=== PATIENT | male | born 1930 | race Caucasian/White ===

== ENCOUNTER 2016-10-21 15:10 | Inpatient (IN) | payer OTHER ==
[~2016-10-21] VITALS: Ht 185.4 cm; Wt 124.3 kg
[~2016-10-21 15:10] MED LIST: ALBUTEROL SULF0.5 ML INH; ALLOPURINOL100 M1 PO; AMIODARONE HCL200 M1 PO; CEPHALEXIN500 M1 PO; COLACE100 M1 PO; CORDARONE 200M200 MG PO; DOK100 M1 PO; DULOXETINE HCL20 MG PO; FUROSEMIDE40 M1 PO; KLOR-CON M1010 ME1 PO; METOLAZONE2.5 M1 PO; METOLAZONE2.5 MG PO; METOPROLOL TART25 M1 PO; MULTIPLE VITAM1 EAC2 PO; OMEPRAZOLE20 M2 PO; PREDNISONE5 MG PO; SENOKOT NATURA8.6 MG PO
--- NOTE | 2016-10-21 15:19 | NUR ---
PT ARRIVES VIA EMS, REPORTS ABD PAIN SINCE 1000, PT ABLE TO EAT AND DRINK WELL BEFORE, ARRIVES TO ED PALE, DIAPHORETIC, BELCHING NOTABLE ABD HERNIA TO LUQ(MORE MIDLINE) PER EMS NO BOWEL SOUNDS
--- NOTE | 2016-10-21 15:22 | NUR ---
DR. ARZOLA ASKED TO SEE PT.
--- NOTE | 2016-10-21 15:39 | NUR ---
MD AT BEDSIDE, PT STEVEN JAMA, APPEARS UNCOMF REMAINS DIAPHORETIC, LABS DRAWN AND SENT.
[2016-10-21 15:47] LABS: ABSOLUTE BASOPHIL COUNT 0.1 /CUMM (0.0-0.2); ABSOLUTE EOSINOPHIL COUNT 0.2 /CUMM (0.0-0.7); ABSOLUTE GRANULOCYTE CT 8.8 /CUMM (1.4-6.5); ABSOLUTE MONOCYTE COUNT 0.6 /CUMM (0.10-0.60); BASOPHIL % 0.5 % (0.0-2.0); EOSINOPHIL % 1.3 % (0-5); GRANULOCYTE % 69.6 % (42.2-75.2); HEMATOCRIT 40.9 % (42-52); MEAN CORPUSCULAR HGB 29.8 PG (27.0-31.0); MEAN CORPUSCULAR HGB CONC 32.9 G/DL (33.0-37.0); MEAN CORPUSCULAR VOLUME 90.5 FL (80.0-94.0); MEAN PLATELET VOLUME 9.1 FL (7.4-10.4); PLATELET COUNT 173 /CUMM (130-400); RED BLOOD CELL CT 4.51 /CUMM (4.70-6.10); WHITE BLOOD CELL COUNT 12.7 /CUMM (4.8-10.8)
--- NOTE | 2016-10-21 15:47 | ED GI/GU/ABDOMINAL COMPLAINT ---
History of Present Illness General Chief Complaint: Abdominal Pain/Flank Pain Stated Complaint: BIBA, ABD PAIN Source: patient Exam Limitations: no limitations Vital Signs & Intake/Output Vital Signs & Intake/Output Vital Signs Date Time Temp Pulse Resp B/P B/P Pulse O2 O2 Flow FiO2 Mean Ox Delivery Rate 10/21 1759 96.0 56 16 131/61 93 Room Air 10/21 1520 96.1 72 72 136/64 94 Room Air Allergies Coded Allergies: NO KNOWN ALLERGIES (03/02/14) Reconcile Medications Allopurinol 100 MG TABLET 1 TAB PO BID GOUT (Reported) Amiodarone HCl 200 MG TABLET 0.5 TAB PO DAILY HEART (Reported) Docusate Sodium (Colace) 100 MG CAPSULE 1 CAP PO QAM STOOL SOFTENER (Reported ) Duloxetine HCl 20 MG CAPSULE.DR 1 CAP PO QAM NERVE PAIN (Reported) Furosemide 40 MG TABLET 1 TAB PO BID DIURETIC (Reported) Metolazone 2.5 MG TABLET 1 TAB PO Monday DIURETIC (Reported) Metoprolol Tartrate 25 MG TABLET 1 TAB PO BID BP (Reported) Multivitamin (Multiple Vitamins) 1 EACH TABLET 1 TAB PO DAILY SUPPLEMENT ( Reported) Omeprazole 20 MG CAPSULE.DR 1 CAP PO QAM GI (Reported) Polyethylene Glycol 3350 (Miralax) 17 GRAM POWD.PACK 1 PAC PO DAILY GI ( Reported) dissolve in water Potassium Chloride (Klor-Con M10) 10 MEQ TAB.ER.PRT 1 TAB PO QAM SUPPLEMENT ( Reported) Prednisone 5 MG TABLET 1 TAB PO DAILY GOUT (Reported) Triage Note: PT ARRIVES VIA EMS, REPORTS ABD PAIN SINCE 1000, PT ABLE TO EAT AND DRINK WELL BEFORE, ARRIVES TO ED PALE, DIAPHORETIC, BELCHING NOTABLE ABD HERNIA TO LUQ(MORE MIDLINE) PER EMS NO BOWEL SOUNDS Triage Nurses Notes Reviewed? yes HPI: Patient presents for evaluation of severe abdominal pain that began gradually about 10:00 this morning while at rest at home. Patient is describing a central abdominal pain "like I have to go to the bathroom". He has had nausea but no vomiting diarrhea or dysuria. He likewise denies chest pain or dyspnea. He has had similar abdominal pain episodes secondary to small bowel obstruction. nothing seems to make him feel better. Past History Travel History Traveled to [place] past 21 day No Medical History Any Pertinent Medical History? see below for history Neurological: NONE EENT: NONE Cardiovascular: aortic aneurysm, AFIB Respiratory: LUNG BIOPSY Gastrointestinal: peptic ulcer disease, ILEUS H. 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 Other Medical Hx: AFIB, aortic regurgitation, pulmonary embolism, IVC filter, diastolic heart failure History of MRSA: No History of VRE: No History of CDIFF: No Pneumonia Vaccine: 02/03/14 Surgical History Surgical History: appendectomy, cholecystectomy, hernia repair-incisional, hip replacement, knee replacement, multiple surgeries orthopedic and abdominal surgeries Psychosocial History Who do you live with Patient/Self Services at Home Home Health Aide What is your primary language Albanian Tobacco Use: Never used Family History Family History, If Any: MOTHER FH: stomach cancer FATHER FH: [place] (myocardial infarction) Hx Contributory? No Review of Systems Review of Systems Constitutional: Reports: no symptoms. EENTM: Reports: no symptoms. Respiratory: Reports: no symptoms. Cardiovascular: Reports: no symptoms. GI: Reports: see HPI. Genitourinary: Reports: no symptoms. Musculoskeletal: Reports: no symptoms. Skin: Reports: no symptoms. Neurological/Psychological: Reports: no symptoms. Hematologic/Endocrine: Reports: no symptoms. Immunologic/Allergic: Reports: no symptoms. All Other Systems: Reviewed and Negative Physical Exam Physical Exam Gastrointestinal: see below Comments: Gen.: Well-nourished, well-developed, no acute respiratory distress. Mild to moderate distress secondary to abdominal pain and nausea Head: Normocephalic, atraumatic. Eyes: Normal inspection bilaterally Ears: Normal inspection bilaterally Nose: Normal inspection Throat/mouth : Tacky mucosa Neck: Supple, full range of motion, no goiter Heart: Regular rate and rhythm, no murmurs rubs or gallops Lungs: Clear to auscultation bilaterally with normal air entry Chest: Nontender Back: Normal range of motion Abdomen: Soft, diffuse mild tenderness, diffusely distended, decreased bowel sounds, 3 ventral hernias Extremities: Normal range of motion grossly, equal radial pulses, no cyanosis Neurologic: Cranial nerves grossly intact, speech is clear Skin: warm and dry Psychiatric: Calm, cooperative, no apparent delusions or hallucinations Core Measures ACS in differential dx? No Severe Sepsis Present: No Septic Shock Present: No Progress Differential Diagnosis: sbo,ilues Plan of Care: Orders Procedure Date/time Status Nothing by Mouth 10/22 B Active PHOSPHORUS 10/22 06 Active MAGNESIUM 10/22 06 Active CBC WITHOUT DIFFERENTIAL 10/22 06 Active BASIC ELECTROLYTES PLUS BUN&CR 10/22 06 Active XRY-PORTABLE CHEST XRAY 10/22 1935 Active Admit to inpatient 10/21 1924 Active Patient Data 10/21 1909 Active NGT 10/21 1909 Active TROPONIN LEVEL 10/21 1525 Complete LIPASE 10/21 1525 Complete LACTIC ACID 10/21 1525 Complete COMPREHENSIVE METABOLIC PANEL 10/21 152 Complete CBC WITHOUT DIFFERENTIAL 10/21 1525 Complete AMYLASE 10/21 1525 Complete EKG 10/21 1511 Active Current Medications Sig/Keegan Start time Last Medication Dose Stop Time Status Admin Pantoprazole Sodium 40 MG DAILY 10/22 1000 UNVr (Protonix) Metoprolol Tartrate 5 MG Q6 10/22 0600 UNVr (Lopressor) Heparin Sodium 5,000 UNIT Q8 10/21 2200 UNVr (Porcine) Ondansetron HCl 4 MG Q6P PRN 10/21 2200 UNVr (Zofran) Morphine Sulfate 2 MG Q4P PRN 10/21 1900 UNVr (Morphine) Morphine Sulfate 4 MG Q4P PRN 10/21 1900 UNVr (Morphine) Potassium Chloride 20 MEQ Q13H 10/21 190 UNVr (KCl 20MEQ in D5W NS 1000ML) Dextrose/Sodium 1,000 ML Chloride (D5-Normal Saline) Laboratory Tests 10/21/16 1615: Lactic Acid Cancelled 10/21/16 1530: Anion Gap 14, Estimated GFR 27 L, BUN/Creatinine Ratio 37.8 H, Glucose 129 H, Lactic Acid 2.0, Calcium 9.3, Total Bilirubin 0.9, AST 22, ALT 36, Alkaline Phosphatase 89, Troponin I 0.04, Total Protein 7.0, Albumin 3.9, Globulin 3.1, Albumin/Globulin Ratio 1.3, Amylase 177 H, Lipase 332 H, CBC w Diff NO MAN DIFF REQ, RBC 4.51 L, MCV 90.5, MCH 29.8, RDW 15.0 H, MPV 9.1, Gran % 69.6, Lymphocytes % 24.0, Monocytes % 4.6, Eosinophils % 1.3, Basophils % 0.5, Absolute Granulocytes 8.8 H, Absolute Lymphocytes 3.0, Absolute Monocytes 0.6, Absolute Eosinophils 0.2, Absolute Basophils 0.1, PUBS MCHC 32.9 L Diagnostic Imaging: Discussed w/RAD: Radiology Read. Radiology Impression: PATIENT: REGI LOBATO PRESENT AGE: 86 PATIENT ACCOUNT NO: [id number] : [birth year] LOCATION: [facility] ORDERING PHYSICIAN: SAMANTHA VITALE MD SERVICE DATE: 10/21/16 EXAM TYPE: RAD - [id number] VIEWS EXAMINATION: XR ABDOMEN MULTIPLE VIEWS CLINICAL INDICATION: Abdominal distention and pain. COMPARISON: Multiple prior x-rays most recent prior dated 03/11/2016 TECHNIQUE: Supine and upright abdomen. FINDINGS: Multiple dilated loops of small bowel noted in the midabdomen. Distended loops measure approximately 6.2 cm in maximal dilatation. Abnormally dilated small bowel loops were also seen on the previous examination. Gas noted underneath the left hemidiaphragm likely representing air in the stomach. No evidence of air underneath the right hemidiaphragm. Surgical clips noted in the upper abdomen and pelvis. Status post left hip arthroplasty. IMPRESSION: Abnormal dilatation of the small bowel suspicious for small bowel obstruction in the appropriate clinical setting. Further assessment with CT scan recommended to assess the possible zone of transition. Finding discussed with Dr. Vitale at 4:40 PM on 10/21/2016. DICTATED BY: FRANCO WEST MD DATE/TIME DICTATED:10/21/161606 CAMPUS RECEPTIONIST:NIKKI DATE/TIME TRANSCRIBED:10/21/161606 CONFIDENTIAL, DO NOT COPY WITHOUT APPROPRIATE AUTHORIZATION. <Electronically signed in Other Vendor System> SIGNED BY: FRANCO WEST MD 10/21/16 2602 Initial ED EKG: none Comments: 10/21/2016 5:57:19 PM NG tube placed by me with typical yellow-green stomach aspirate obtained. Patient's case has been discussed with Dr. Peterson and I have just notify the surgical PA. The patient according to the family would not consider surgical intervention so the radiologist recommended CAT scan has been deferred and a simple chest x-ray will be obtained to confirm NG tube placement. Surgical PA SANKET is in agreement. Departure Departure Disposition: STILL A PATIENT Condition: Stable Clinical Impression Primary Impression: Small bowel obstruction Secondary Impressions: APRIL (acute kidney injury), Anemia, Ventral hernia Referrals: SHRUTHI MIRZA,DAVID Mario (PCP/Family) Departure Forms: Customer Survey General Discharge Information Admission Note Spoke With: SILVESTRE MIRZA,MADHAV Harris Documentation of Exam: Documentation of any treatments & extenuating circumstances including Concerns Regarding Discharge (functional status, medication knowledge or non-compliance, living conditions, etc.) that warrant an admission rather than observation: Patient has a small bowel obstruction with severe nausea and retching. He is unable to tolerate PO intake. This places him at high risk of dehydration. In addition his bowel obstruction places him at risk of worsening abdominal pain perforation peritonitis and overwhelming infection. An NG tube has been placed to decompress the gastrointestinal tract. The patient is requiring IV antiemetics and pain medication for symptom control. He cannot be treated safely as an outpatient under the circumstances that would likely return in worse clinical condition if attempted. I feel he now requires close clinical monitoring, treatment with IV antiemetics and narcotic pain relievers for symptom control. He should also be administered IV fluids for dehydration. Serial abdominal examination should be performed and additional imaging obtained and surgical exploration should be considered if there is any deterioration of patient's clinical condition. Given his age and medical comorbidities I feel he 'll require a multiple day hospitalization. Procedures Additional Procedures Additional Procedures: nasogastric tube Progress: Nasogastric tube placed into the left nostril with an 18 [place] sump catheter. Patient tolerated procedure well. Yellow-green gastric contents obtained. Critical Care Note Critical Care Note Critical Care Time: 30-74 min
--- NOTE | 2016-10-21 15:56 | NUR ---
REDRAW NEEDED OF MIREYA LA, CANDY CHAPPELL IN CHEMISTRY, RAHEL Rivera
[2016-10-21] MEDS ORDERED: MIRALAX17 G1 PO (16:09)
[2016-10-21] MEDS ORDERED: PREDNISONE5 M1 PO (16:12)
--- NOTE | 2016-10-21 16:19 | NUR ---
GOMES TOP REDRAWN BLUE TOP OBTAINED ALSO
--- NOTE | 2016-10-21 16:45 | RADIOLOGY REPORT ---
EXAMINATION: XR ABDOMEN MULTIPLE VIEWS CLINICAL INDICATION: Abdominal distention and pain. COMPARISON: Multiple prior x-rays most recent prior dated 03/11/2016 TECHNIQUE: Supine and upright abdomen. FINDINGS: Multiple dilated loops of small bowel noted in the midabdomen. Distended loops measure approximately 6.2 cm in maximal dilatation. Abnormally dilated small bowel loops were also seen on the previous examination. Gas noted underneath the left hemidiaphragm likely representing air in the stomach. No evidence of air underneath the right hemidiaphragm. Surgical clips noted in the upper abdomen and pelvis. Status post left hip arthroplasty. IMPRESSION: Abnormal dilatation of the small bowel suspicious for small bowel obstruction in the appropriate clinical setting. Further assessment with CT scan recommended to assess the possible zone of transition. Finding discussed with Dr. Vitale at 4:40 PM on 10/21/2016.
--- NOTE | 2016-10-21 16:51 | NUR ---
CRITICAL TEST RESULTS [id number] REGI LOBATO 86 M TESTS AND RESULTS: LACTIC 2.0 Results received and read back by: HOUSTON HUSSEIN Results received date and time: 10/21/16 1651 The following provider was notified of the results, and read the results back: DR ARZOLA Notified date and time: 10/21/16 at 1653
--- NOTE | 2016-10-21 17:48 | NUR ---
NGT PLACED BY
--- NOTE | 2016-10-21 17:48 | NUR ---
NG TUBE PALCED BY DOCTOR ARZOLA. PT TOLERATED WELL, CLEAR YELLOW FLUID DRAINING AFTER DR ARZOLA PLACED ON CONTINUOUS LOW WALL SUCTION
--- NOTE | 2016-10-21 18:32 | NUR ---
PT ACTIVELY VOMITING , MD AWARE PT APPEARS UNCOMF, FAMILY AT BEDSIDE NGT DRAINING YELLOWISH LIQUID.
--- NOTE | 2016-10-21 19:08 | History & Physical Pre-Op ---
General Information and HPI History of Present Illness: Patient known to me from prior admissions for bowel obstruction. He has multiple incisional hernias containing small bowel. Given his age, they have been observed, as repair would require major abdomonal wall reconstruction. He presents with abdominal pain and increase distension associated with nausea, vomiting and lack of bowel function. History is gleaned from his daughter at the bedside. He is sleepy and arousable but unable to give much of a history from pain medications and antiemetics. Allergies/Medications Allergies: Coded Allergies: NO KNOWN ALLERGIES (03/02/14) Home Med list Allopurinol 100 MG TABLET 1 TAB PO BID GOUT (Reported) Amiodarone HCl 200 MG TABLET 0.5 TAB PO DAILY HEART (Reported) Docusate Sodium (Colace) 100 MG CAPSULE 1 CAP PO QAM STOOL SOFTENER (Reported ) Duloxetine HCl 20 MG CAPSULE.DR 1 CAP PO QAM NERVE PAIN (Reported) Furosemide 40 MG TABLET 1 TAB PO BID DIURETIC (Reported) Metolazone 2.5 MG TABLET 1 TAB PO Monday DIURETIC (Reported) Metoprolol Tartrate 25 MG TABLET 1 TAB PO BID BP (Reported) Multivitamin (Multiple Vitamins) 1 EACH TABLET 1 TAB PO DAILY SUPPLEMENT ( Reported) Omeprazole 20 MG CAPSULE.DR 1 CAP PO QAM GI (Reported) Polyethylene Glycol 3350 (Miralax) 17 GRAM POWD.PACK 1 PAC PO DAILY GI ( Reported) dissolve in water Potassium Chloride (Klor-Con M10) 10 MEQ TAB.ER.PRT 1 TAB PO QAM SUPPLEMENT ( Reported) Prednisone 5 MG TABLET 1 TAB PO DAILY GOUT (Reported) Past History Medical History Neurological: NONE EENT: NONE Cardiovascular: aortic aneurysm, AFIB Respiratory: LUNG BIOPSY Gastrointestinal: peptic ulcer disease, ILEUS H. 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 self Services at Home Home Health Aide Primary Language: Spanish Functional Ability ADLs Independent: dressing, eating, toileting, bathing. Ambulation: independent Review of Systems Review of Systems: unobtainable. Exam & Diagnostic Data Last 24 Hrs of Vital Signs/I&O Vital Signs Date Time Temp Pulse Resp B/P B/P Pulse O2 O2 Flow FiO2 Mean Ox Delivery Rate 10/21 1759 96.0 56 16 131/61 93 Room Air 10/21 1520 96.1 72 72 136/64 94 Room Air Intake & Output 10/21 1600 10/21 0800 10/21 0000 Intake Total Output Total Balance Patient 185 lb Weight Physical Exam: Gen: looks age, nad. sleepy but arousable. Heent: anicteric, mmm, eomi abdomen: soft, nt. distended. irreducible multiple bowel containing hernias of abdominal wall. Last 24 Hrs of Labs/Martin: Laboratory Tests 10/21/16 1615: Lactic Acid Pending 10/21/16 1530: Anion Gap 14, Estimated GFR 27 L, BUN/Creatinine Ratio 37.8 H, Glucose 129 H, Lactic Acid 2.0, Calcium 9.3, Total Bilirubin 0.9, AST 22, ALT 36, Alkaline Phosphatase 89, Troponin I 0.04, Total Protein 7.0, Albumin 3.9, Globulin 3.1, Albumin/Globulin Ratio 1.3, Amylase 177 H, Lipase 332 H, CBC w Diff NO MAN DIFF REQ, RBC 4.51 L, MCV 90.5, MCH 29.8, RDW 15.0 H, MPV 9.1, Gran % 69.6, Lymphocytes % 24.0, Monocytes % 4.6, Eosinophils % 1.3, Basophils % 0.5, Absolute Granulocytes 8.8 H, Absolute Lymphocytes 3.0, Absolute Monocytes 0.6, Absolute Eosinophils 0.2, Absolute Basophils 0.1, PUBS MCHC 32.9 L Diagnostic Data CXR Results abdominal xray shows multiple dilated loops of small bowel. Assessment/Plan Assessment/Plan: Intestinal 0bstruction. No evidence for bowel strangulation. Plan for medical management with NGT and hydration, bowel rest, serial abdominal examinations. Dehydration with baseline chronic kidney disease. As Ranked By This Provider Problem List: 1. Small bowel obstruction
--- NOTE | 2016-10-21 19:15 | NUR ---
PER FAMILY SEEN BY DR. RIVERS WHO REPORTS WILL TRET PT CONSERVATIVELY AND REST STOMACH, NOT A SURGICAL CANDIDATE AT THIS TIME.
--- NOTE | 2016-10-21 19:58 | NUR ---
PT CONTINUES TO VOMIT.
--- NOTE | 2016-10-21 20:17 | NUR ---
PT TO ROOM 185 BED 1
--- NOTE | 2016-10-21 20:37 | NUR ---
PER YUNIER CHARGE SPOKE WITH SURGERY PT TO GO TO TELE D/T NEEDING LOPRESSOR IN AM PT IS ON IT AT HOME D/T NGT PT WOULD NEED IT IV ,AND NEEDS TELE FOR THAT. ALTHOUGH PTS HR IS IN 60'S. AND NORMOTWNSIVE. REPORT TO JOSE
--- NOTE | 2016-10-21 20:42 | RADIOLOGY REPORT ---
EXAMINATION: XR PORTABLE CHEST CLINICAL INFORMATION: NG tube placement. COMPARISON: Abdominal x-ray from earlier the same day. TECHNIQUE: Portable frontal view of the chest was obtained. FINDINGS: Despite history, an NG tube is not convincingly visualized either in the expected location of the esophagus or projecting over the stomach. The thoracic aorta remains unfolded and prominent. The heart size is normal. The lungs are unchanged and grossly clear. Air-filled loops of bowel are seen in the upper abdomen. Clips in the right upper quadrant of the abdomen. IMPRESSION: An NG tube is not convincingly visualized on this image.
[2016-10-21 21:26] VITALS: BP 120/58
--- NOTE | 2016-10-21 23:26 | Admission Core Measures ---
Admission Lab Results I reviewed the following labs: Laboratory Tests 10/21 10/21 1615 1530 Chemistry Sodium (137 - 145 mmol/L) 139 Potassium (3.5 - 5.1 mmol/L) 3.8 Chloride (98 - 107 mmol/L) 98 Carbon Dioxide (22 - 30 mmol/L) 28 Anion Gap (5 - 16) 14 BUN (9 - 20 mg/dL) 87 H Creatinine (0.7 - 1.2 mg/dL) 2.3 H Estimated GFR (>60 ml/min) 27 L BUN/Creatinine Ratio (7 - 25 %) 37.8 H Glucose (65 - 99 mg/dL) 129 H Lactic Acid (0.7 - 2.1 mmol/L) Cancelled 2.0 Calcium (8.4 - 10.2 mg/dL) 9.3 Total Bilirubin (0.2 - 1.3 mg/dL) 0.9 AST (17 - 59 U/L) 22 ALT (21 - 72 U/L) 36 Alkaline Phosphatase (< 127 U/L) 89 Troponin I (<0.11 ng/ml) 0.04 Total Protein (6.3 - 8.2 g/dL) 7.0 Albumin (3.5 - 5.0 g/dL) 3.9 Globulin (1.9 - 4.2 gm/dL) 3.1 Albumin/Globulin Ratio (1.1 - 2.2 %) 1.3 Amylase (30 - 110 U/L) 177 H Lipase (23 - 300 U/L) 332 H Hematology CBC w Diff NO MAN DIFF REQ WBC (4.8 - 10.8 /CUMM) 12.7 H RBC (4.70 - 6.10 /CUMM) 4.51 L Hgb (14.0 - 18.0 G/DL) 13.4 L Hct (42 - 52 %) 40.9 L MCV (80.0 - 94.0 FL) 90.5 MCH (27.0 - 31.0 PG) 29.8 RDW (11.5 - 14.5 %) 15.0 H Plt Count (130 - 400 /CUMM) 173 MPV (7.4 - 10.4 FL) 9.1 Gran % (42.2 - 75.2 %) 69.6 Lymphocytes % (20.5 - 51.1 %) 24.0 Monocytes % (1.7 - 9.3 %) 4.6 Eosinophils % (0 - 5 %) 1.3 Basophils % (0.0 - 2.0 %) 0.5 Absolute Granulocytes (1.4 - 6.5 /CUMM) 8.8 H Absolute Lymphocytes (1.2 - 3.4 /CUMM) 3.0 Absolute Monocytes (0.10 - 0.60 /CUMM) 0.6 Absolute Eosinophils (0.0 - 0.7 /CUMM) 0.2 Absolute Basophils (0.0 - 0.2 /CUMM) 0.1 PUBS MCHC (33.0 - 37.0 G/DL) 32.9 L Admission Meds I reviewed the following Meds: Current Medications Sig/Keegan Start time Last Medication Dose Stop Time Status Admin Heparin Sodium 5,000 UNIT Q8 10/21 2200 AC 10/21 (Porcine) 220 Metoprolol Tartrate 5 MG Q6 10/22 0600 AC (Lopressor) Morphine Sulfate 2 MG Q4P PRN 10/21 1900 AC (Morphine) Morphine Sulfate 4 MG Q4P PRN 10/21 1900 AC (Morphine) Ondansetron HCl 4 MG Q6P PRN 10/21 2200 AC (Zofran) Pantoprazole Sodium 40 MG DAILY 10/22 1000 AC (Protonix) Potassium Chloride 20 MEQ Q13H 10/21 1900 AC 10/21 (KCl 20MEQ in D5W NS 2041 1000ML) Dextrose/Sodium 1,000 ML Chloride (D5-Normal Saline) Acute Coronary Syndrome Inclusion Criteria ACS Diagnosis No Inpatient Core Measures LDL Reminder: If No, please order W/I first 24hr of stay Congestive Heart Failure Inclusion Criteria CHF Diagnosis No Cerebrovascular accident Inclusion Criteria CVA/TIA Diagnosis No Inpatient Core Measures Bedside Swallow Eval Reminder: If BSE failed, place ST order Antithrombotic Reminder: Order Antithrombotic Medication by end of day 2 Antithrombotic Reminder: Document Reason Antithrombotic Not ordered by end of day 2 AFIB/Flutter Reminder: If Present, add to problem list AFIB/Flutter Reminder: Order Anticoag Medication for pts with AFIB/Flutter Atherosclerosis Reminder: If Present, add to problem list LDL Reminder: If No, please order W/I first 24hr of stay PT Order Reminder: If No, please order Venous thromboembolism Inpatient Core Measures VTE Risk Factors: Acute medical illness, Age > 40, Previous VTE No Mech VTE prophylaxis d/t No contraindications No VTE Pharm Prophylaxis d/t No contraindications Inclusion Criteria - Per Current guidelines, there needs to be overlap - treatment for the first 5 days of Warfarin therapy. - Parenteral Anticoagulation (IV or SC) needs to be - given along with Warfarin therapy. VTE Diagnosis No VTE Type NONE VTE Confirmed by (Test) NONE Problem List As ranked by this Provider includes Assessment & Plan 1. SBO (small bowel obstruction) HOME MEDS Home Med List Allopurinol 100 MG TABLET 1 TAB PO BID GOUT (Reported) Amiodarone HCl 200 MG TABLET 0.5 TAB PO DAILY HEART (Reported) Docusate Sodium (Colace) 100 MG CAPSULE 1 CAP PO QAM STOOL SOFTENER (Reported ) Duloxetine HCl 20 MG CAPSULE.DR 1 CAP PO QAM NERVE PAIN (Reported) Furosemide 40 MG TABLET 1 TAB PO BID DIURETIC (Reported) Metolazone 2.5 MG TABLET 1 TAB PO Monday DIURETIC (Reported) Metoprolol Tartrate 25 MG TABLET 1 TAB PO BID BP (Reported) Multivitamin (Multiple Vitamins) 1 EACH TABLET 1 TAB PO DAILY SUPPLEMENT ( Reported) Omeprazole 20 MG CAPSULE.DR 1 CAP PO QAM GI (Reported) Polyethylene Glycol 3350 (Miralax) 17 GRAM POWD.PACK 1 PAC PO DAILY GI ( Reported) Potassium Chloride (Klor-Con M10) 10 MEQ TAB.ER.PRT 1 TAB PO QAM SUPPLEMENT ( Reported) Prednisone 5 MG TABLET 1 TAB PO DAILY GOUT (Reported)
[2016-10-21 23:41] VITALS: BP 128/60
[2016-10-22 08:17] VITALS: BP 112/58
[2016-10-22 08:22] LABS: ABSOLUTE BASOPHIL COUNT 0 /CUMM (0.0-0.2); ABSOLUTE EOSINOPHIL COUNT 0.1 /CUMM (0.0-0.7); ABSOLUTE GRANULOCYTE CT 7.7 /CUMM (1.4-6.5); ABSOLUTE LYMPH COUNT 1.6 /CUMM (1.2-3.4); ABSOLUTE MONOCYTE COUNT 0.5 /CUMM (0.10-0.60); BASOPHIL % 0.4 % (0.0-2.0); GRANULOCYTE % 77.3 % (42.2-75.2); HEMATOCRIT 39.7 % (42-52); MEAN CORPUSCULAR HGB 29.8 PG (27.0-31.0); MEAN CORPUSCULAR VOLUME 90.3 FL (80.0-94.0); MEAN PLATELET VOLUME 9.7 FL (7.4-10.4); PLATELET COUNT 156 /CUMM (130-400); RBC DISTRIBUTION WIDTH 15.3 % (11.5-14.5); WHITE BLOOD CELL COUNT 9.9 /CUMM (4.8-10.8)
--- NOTE | 2016-10-22 08:37 | PN- General Surgery ---
See Addendum Subjective Subjective: Awake, alert No complaints this morning, feels much better No pain, no further nausea Has actually passed gas, No bm - last bm 2 days ago Objective Vital Signs and I&Os Vital Signs Date Time Temp Pulse Resp B/P B/P Pulse O2 O2 Flow FiO2 Mean Ox Delivery Rate 10/23 0717 98.3 65 18 112/58 96 Room Air 10/22 0600 70 130/80 10/21 2341 97.2 66 20 128/60 91 Room Air 10/21 2126 97.6 80 18 120/58 94 Room Air 10/21 1920 97.0 60 16 130/70 96 Room Air 10/21 1759 96.0 56 16 131/61 93 Room Air 10/21 1520 96.1 72 72 136/64 94 Room Air Intake & Output 10/22 1600 10/22 0800 10/22 0000 10/21 1600 10/21 0800 10/21 0000 Intake Total 1000 Output Total 1300 200 Balance -300 -200 Intake, IV 1000 Output, 900 200 Gastric Drainage Output, Urine 400 Patient 274 lb 185 lb Weight Physical Exam: vss, afebrile Urine output 400cc overnight NGT: 900cc overnight, dark, thin General: alert and oriented times three Chest: clear anteriorly bilaterally, RRR Abd: soft, palpable hernias - (at baseline per patient, nontender, soft), good bs Ext: warm, no edema Assessment/Plan Assessment/Plan 86 yo male with multiple hernias and recurrent sbo, admitted with sbo and dehydration - symptoms improving, +flatus, stable urine output follow up multiview Will assess ability to clamp NGT for medications later - still with high output overnight Continue IV meds - including metoprolol Increase potassium in IVF for repletion Continue IVF at 125cc/hr for now ice chips Core Measures/Miscellaneous Venous Thromboembolism VTE Risk Factors: Obesity VTE Contraindications: No Contraindications VTE Diagnosis: No VTE Type: NONE VTE Confirmed by (Test): NONE [employer] Is Beta [employer] a Home Med? Yes If Yes, Was This Ordered Today? Yes Antibiotics Is Patient on Antibiotics? No
--- NOTE | 2016-10-22 15:58 | RADIOLOGY REPORT ---
EXAMINATION: XR ABDOMEN MULTIPLE VIEWS CLINICAL INDICATION: Follow-up small bowel obstruction COMPARISON: 10/21/2016 TECHNIQUE: Frontal supine and erect views the abdomen obtained. FINDINGS: Stool and air seen within the colon to the rectum. Scattered air-filled loops of small bowel are seen but these have decreased somewhat from yesterday's study. Stomach is decompressed with nasogastric tube. Multiple surgical khalif are seen in the left upper quadrant and to a lesser extent right upper quadrant. Surgical clips seen along the pelvic sidewalls. IVC filter is in place. Extensive degenerative changes in the spine. Left hip prosthesis partially imaged. IMPRESSION: Stool and air seen throughout the colon to the rectum. No obvious obstruction. Small bowel gas is decreased from yesterday's study.
[2016-10-22 16:12] VITALS: BP 128/60
[2016-10-22 23:48] VITALS: BP 128/68
--- NOTE | 2016-10-23 00:04 | NUR ---
ONLY 50ML OUTPUT FROM NGT FOR LAST 4 HOURS. SURGICAL PA MORRIS AWARE. PER MORRIS, SHE WILL CHANGE THE IV LOPRESSOR TO PO AND TO BE GIVEN THROUGH NGT AND CLAMP FOR ONE HOUR THEN CONTINUE LWS. BP 128/64. HR NSR 70S. NAD.
[2016-10-23 08:21] VITALS: BP 136/82
[2016-10-23 08:22] LABS: ABSOLUTE BASOPHIL COUNT 0 /CUMM (0.0-0.2); ABSOLUTE EOSINOPHIL COUNT 0.3 /CUMM (0.0-0.7); ABSOLUTE GRANULOCYTE CT 5.7 /CUMM (1.4-6.5); ABSOLUTE LYMPH COUNT 1.7 /CUMM (1.2-3.4); ABSOLUTE MONOCYTE COUNT 0.6 /CUMM (0.10-0.60); BASOPHIL % 0.4 % (0.0-2.0); EOSINOPHIL % 3.1 % (0-5); GRANULOCYTE % 68.3 % (42.2-75.2); HEMATOCRIT 37.9 % (42-52); MEAN CORPUSCULAR HGB 29.8 PG (27.0-31.0); MEAN CORPUSCULAR HGB CONC 32.5 G/DL (33.0-37.0); MEAN CORPUSCULAR VOLUME 91.7 FL (80.0-94.0); MEAN PLATELET VOLUME 9.9 FL (7.4-10.4); PLATELET COUNT 139 /CUMM (130-400); RBC DISTRIBUTION WIDTH 15.7 % (11.5-14.5); RED BLOOD CELL CT 4.13 /CUMM (4.70-6.10); WHITE BLOOD CELL COUNT 8.3 /CUMM (4.8-10.8)
--- NOTE | 2016-10-23 09:50 | PN- General Surgery ---
See Addendum Subjective Subjective: Pt has no major complaints this morning. He is feeling much better overall and started to pass some flatus this morning. He denies abdominal pain. No BM as of yet. Multi-view X-ray of the abdomen showed improvement yesterday afternoon. Per previous PA reports, NGT was clamped for several hours after the trip to radiology yesterday, but pt tolerated this well, without any complaints of nausea. Otherwise denies MCDONOUGH, dizziness, CP, SOB. Objective Vital Signs and I&Os Vital Signs Date Time Temp Pulse Resp B/P B/P Pulse O2 O2 Flow FiO2 Mean Ox Delivery Rate 10/23 820 98.2 80 18 136/82 92 Room Air 10/23 0519 99.4 10/23 0134 99.5 10/23 0134 78 132/64 10/23 0000 Room Air 10/22 2348 99.7 72 22 128/68 92 Room Air 10/22 1811 78 140/80 10/22 1810 76 140/80 10/22 1612 98.1 93 20 128/60 93 Room Air Intake & Output 10/23 1600 10/23 0800 10/23 0000 10/22 1600 10/22 0800 10/22 0000 Intake Total 1000 0263 833 7157 Output Total 773 415 5663 1300 200 Balance 400 1250 -300 -300 -200 Intake, IV 1000 4783 416 2863 Intake, Oral 0 0 50 Number 0 0 Bowel Movements Output, 150 50 750 900 200 Gastric Drainage Output, Urine 450 200 500 400 Patient 274 lb Weight Physical Exam: Gen: Patient is awake and alert. No acute distress. HEENT: Nasogastric tube remains in place with scant amount of bilious output. The canister was full, so I suggested changing it to ensure that the decreased output was not due to loss of negative pressure. Observation for about 15-20 minutes revealed only scant output. Cardiac: Regular, but with occasional irregularity. Pulmonary: Anterior lung alexander are clear. Abdomen: Soft and nondistended. Multiple abdominal wall defects, without significant tenderness or distention. Normoactive bowel sounds were heard. Extremities: There is some mild lower extremity edema bilaterally, but right greater than left. Results Last 48 Hours of Labs: Laboratory Tests 10/23 10/22 0606 0620 Chemistry Sodium (137 - 145 mmol/L) 148 H 142 Potassium (3.5 - 5.1 mmol/L) 4.2 3.9 Chloride (98 - 107 mmol/L) 108 H 101 Carbon Dioxide (22 - 30 mmol/L) 30 28 Anion Gap (5 - 16) 10 13 BUN (9 - 20 mg/dL) 71 H 88 H Creatinine (0.7 - 1.2 mg/dL) 2.0 H 2.2 H Estimated GFR (>60 ml/min) 32 L 28 L BUN/Creatinine Ratio (7 - 25 %) 35.5 H 40.0 H Phosphorus (2.5 - 4.5 mg/dL) 5.3 H Magnesium (1.6 - 2.3 mg/dL) 2.3 Hematology CBC w Diff NO MAN DIFF REQ NO MAN DIFF REQ WBC (4.8 - 10.8 /CUMM) 8.3 9.9 RBC (4.70 - 6.10 /CUMM) 4.13 L 4.40 L Hgb (14.0 - 18.0 G/DL) 12.3 L 13.1 L Hct (42 - 52 %) 37.9 L 39.7 L MCV (80.0 - 94.0 FL) 91.7 90.3 MCH (27.0 - 31.0 PG) 29.8 29.8 RDW (11.5 - 14.5 %) 15.7 H 15.3 H Plt Count (130 - 400 /CUMM) 139 156 MPV (7.4 - 10.4 FL) 9.9 9.7 Gran % (42.2 - 75.2 %) 68.3 77.3 H Lymphocytes % (20.5 - 51.1 %) 20.5 16.5 L Monocytes % (1.7 - 9.3 %) 7.7 4.8 Eosinophils % (0 - 5 %) 3.1 1.0 Basophils % (0.0 - 2.0 %) 0.4 0.4 Absolute Granulocytes (1.4 - 6.5 /CUMM) 5.7 7.7 H Absolute Lymphocytes (1.2 - 3.4 /CUMM) 1.7 1.6 Absolute Monocytes (0.10 - 0.60 /CUMM) 0.6 0.5 Absolute Eosinophils (0.0 - 0.7 /CUMM) 0.3 0.1 Absolute Basophils (0.0 - 0.2 /CUMM) 0 0 PUBS MCHC (33.0 - 37.0 G/DL) 32.5 L 33.0 10/21 10/21 1615 1530 Chemistry Sodium (137 - 145 mmol/L) 139 Potassium (3.5 - 5.1 mmol/L) 3.8 Chloride (98 - 107 mmol/L) 98 Carbon Dioxide (22 - 30 mmol/L) 28 Anion Gap (5 - 16) 14 BUN (9 - 20 mg/dL) 87 H Creatinine (0.7 - 1.2 mg/dL) 2.3 H Estimated GFR (>60 ml/min) 27 L BUN/Creatinine Ratio (7 - 25 %) 37.8 H Glucose (65 - 99 mg/dL) 129 H Lactic Acid (0.7 - 2.1 mmol/L) Cancelled 2.0 Calcium (8.4 - 10.2 mg/dL) 9.3 Total Bilirubin (0.2 - 1.3 mg/dL) 0.9 AST (17 - 59 U/L) 22 ALT (21 - 72 U/L) 36 Alkaline Phosphatase (< 127 U/L) 89 Troponin I (<0.11 ng/ml) 0.04 Total Protein (6.3 - 8.2 g/dL) 7.0 Albumin (3.5 - 5.0 g/dL) 3.9 Globulin (1.9 - 4.2 gm/dL) 3.1 Albumin/Globulin Ratio (1.1 - 2.2 %) 1.3 Amylase (30 - 110 U/L) 177 H Lipase (23 - 300 U/L) 332 H Hematology CBC w Diff NO MAN DIFF REQ WBC (4.8 - 10.8 /CUMM) 12.7 H RBC (4.70 - 6.10 /CUMM) 4.51 L Hgb (14.0 - 18.0 G/DL) 13.4 L Hct (42 - 52 %) 40.9 L MCV (80.0 - 94.0 FL) 90.5 MCH (27.0 - 31.0 PG) 29.8 RDW (11.5 - 14.5 %) 15.0 H Plt Count (130 - 400 /CUMM) 173 MPV (7.4 - 10.4 FL) 9.1 Gran % (42.2 - 75.2 %) 69.6 Lymphocytes % (20.5 - 51.1 %) 24.0 Monocytes % (1.7 - 9.3 %) 4.6 Eosinophils % (0 - 5 %) 1.3 Basophils % (0.0 - 2.0 %) 0.5 Absolute Granulocytes (1.4 - 6.5 /CUMM) 8.8 H Absolute Lymphocytes (1.2 - 3.4 /CUMM) 3.0 Absolute Monocytes (0.10 - 0.60 /CUMM) 0.6 Absolute Eosinophils (0.0 - 0.7 /CUMM) 0.2 Absolute Basophils (0.0 - 0.2 /CUMM) 0.1 PUBS MCHC (33.0 - 37.0 G/DL) 32.9 L Recent Imaging Studies: Multiview x-ray of the abdomen on 10/22/2016 revealed: Stool and air seen throughout the colon to the rectum. No obvious obstruction. Small bowel gas is decreased from yesterday's study. Assessment/Plan Assessment/Plan Patient is an 86-year-old male who is now hospital day #2 with a recurrent small bowel obstruction due to several abdominal wall hernias. Patient has not been open to the option of surgical repair due to his age and comorbidities. Plan: -Continue nothing by mouth for now. -We will clamp NG tube and check residual in about 3 hours. Patient is starting to have bowel function, so I anticipate that we will be able to remove the tube soon. -Change IV fluids to D5 half-normal saline, without potassium, and decrease rate to 75 per hour. -Oral metoprolol, prednisone, amiodarone, and allopurinol have all been restarted. Will consider restarting diuretics, but will discuss with Dr. Nicholas davis. -Continue to monitor electrolytes. -IV Protonix for GI prophylaxis. -Subcutaneous heparin for DVT prophylaxis. -Will discuss with Dr. Peterson. Problem List: 1. SBO (small bowel obstruction) 2. Ventral hernia Core Measures/Miscellaneous Venous Thromboembolism VTE Risk Factors: Obesity VTE Contraindications: No Contraindications VTE Diagnosis: No VTE Type: NONE VTE Confirmed by (Test): NONE [employer] Is [employer] a Home Med? Yes If Yes, Was This Ordered Today? Yes Antibiotics Is Patient on Antibiotics? No
[2016-10-23 16:20] VITALS: BP 132/60
[2016-10-24 00:16] VITALS: BP 114/62
--- NOTE | 2016-10-24 07:44 | PN- General Surgery ---
See Addendum Subjective Subjective: Awake, alert No complaints Tolerated clear liquids without any pain or nausea and wants to eat and go home. +bm, +flatus Objective Vital Signs and I&Os Vital Signs Date Time Temp Pulse Resp B/P B/P Pulse O2 O2 Flow FiO2 Mean Ox Delivery Rate 10/24 0016 98.7 77 20 114/62 95 Room Air 10/23 2110 73 128/56 10/23 1620 98.1 82 20 132/60 94 Room Air 10/23 1351 Room Air 10/23 1122 80 136/82 10/23 1121 80 136/82 10/23 0821 98.2 80 18 136/82 92 Room Air Intake & Output 10/24 0800 10/24 0000 10/23 1600 10/23 0800 10/23 0000 10/22 1600 Intake Total 435 484 1667 1000 1500 950 Output Total 400 320 625 794 593 2755 Balance -200 -180 855 257 6954 -300 Intake, IV 400 1000 1500 900 Intake, Oral 200 140 840 0 0 50 Number 1 0 0 Bowel Movements Output, 150 50 750 Gastric Drainage Output, Urine 400 320 625 450 200 500 Physical Exam: afebrile, vss General: alert and oriented Chest: clear bilaterally no rales/rhonchi/wheezes, RRR Abd: soft,nondistended, good bowel sounds, numerous hernias -all soft and nontender Ext: warm, no edema Assessment/Plan Assessment/Plan 86 yo male with numerous abdominal hernias admitted with recurrent sbo now resolved Advance to full liquid diet now Will discuss with Dr Baugh - likely advance to regular diet and dc to home if tolerates Restart all home meds dc ivf Core Measures/Miscellaneous Venous Thromboembolism VTE Risk Factors: Obesity VTE Contraindications: No Contraindications VTE Diagnosis: No VTE Type: NONE VTE Confirmed by (Test): NONE [employer] Is [employer] a Home Med? Yes If Yes, Was This Ordered Today? Yes Antibiotics Is Patient on Antibiotics? No
--- NOTE | 2016-10-24 07:49 | Patient Discharge Instructions ---
Discharge Instructions General Discharge Information You were seen/treated for: small bowel obstruction Watch for these problems: increased abdominal pain or nausea Diet Continue normal diet: Yes Activity Activity Self Limited: Yes Acute Coronary Syndrome Inclusion Criteria At DC or during hospital stay patient has or had the following: ACS DIAGNOSIS No Discharge Core Measures Meds if any: Prescribed or Continued at Discharge Meds if any: NOT Prescribed or Continued at Discharge Congestive Heart Failure Inclusion Criteria At DC or during hospital stay patient has or had the following: CHF DIAGNOSIS No Discharge Core Measures Meds if any: Prescribed or Continued at Discharge Meds if any: NOT Prescribed or Continued at Discharge Cerebrovascular accident Inclusion Criteria At DC or during hospital stay patient has or had the following: CVA/TIA Diagnosis No Discharge Core Measures Meds if any: Prescribed or Continued at Discharge Meds if any: NOT Prescribed or Continued at Discharge Venous thromboembolism Inclusion Criteria VTE Diagnosis No VTE Type NONE VTE Confirmed by (Test) NONE Discharge Core Measures - Per Current guidelines, there needs to be overlap - treatment for the first 5 days of Warfarin therapy. - If discharged on Warfarin prior to 5 days of - overlap therapy, the patient will need to be - assessed for post discharge needs including - *Post discharge parental anticoagulation - *Warfarin and/or parental anticoagulation education - *Follow up date to check INR post discharge At least 5 days overlap therapy as Inpatient No Meds if any: Prescribed or Continued at Discharge Note: Overlap Therapy is Warfarin and Anticoagulant Meds if any: NOT Prescribed or Continued at Discharge
[2016-10-24 09:01] VITALS: BP 119/59
[2016-10-24 16:12] VITALS: BP 149/64
[2016-10-25 00:31] VITALS: BP 130/50
--- NOTE | 2016-10-25 07:30 | PN- General Surgery ---
See Addendum Subjective Subjective: Patient without complaints. He tolerated dinner last night, had 2 bowel movements overnight, he is passing gas. He has no pain. Objective Vital Signs and I&Os Vital Signs Date Time Temp Pulse Resp B/P B/P Pulse O2 O2 Flow FiO2 Mean Ox Delivery Rate 10/25 0031 97.7 61 18 130/50 97 Room Air 10/24 2106 72 138/58 10/24 1612 97.9 65 18 149/64 93 Room Air 10/24 1018 71 119/59 10/24 1017 71 119/59 10/24 0901 97.8 71 17 119/59 93 Room Air Intake & Output 10/25 0800 10/25 0000 10/24 1600 10/24 0800 10/24 0000 10/23 1600 Intake Total 240 240 840 419 474 7122 Output Total 700 850 150 400 320 625 Balance -460 -610 690 -200 -180 615 Intake, IV 400 Intake, Oral 240 240 840 200 140 840 Number 2 1 Bowel Movements Output, Urine 700 850 150 400 320 625 Patient 274 lb Weight Physical Exam: Well-developed well-nourished no apparent distress. HEENT: Atraumatic, Neck: Supple, no lymphadenopathy Respiratory: No respiratory distress Abdomen: Abdominal hernias, obese, abdomen is nontender, normal bowel sounds. Extremities: No edema, no calf pain Neuro: Alert and oriented x3 Psych: Mood affect normal, normal memory normal judgment. Skin: Warm and dry, no rash on exposed skin Assessment/Plan Assessment/Plan 86 yo male with numerous abdominal hernias admitted with recurrent sbo now resolved Patient stable for discharge home today, discussed with Dr. Peterson follow-up as necessary. Core Measures/Miscellaneous Venous Thromboembolism VTE Risk Factors: Obesity VTE Contraindications: No Contraindications VTE Diagnosis: No VTE Type: NONE VTE Confirmed by (Test): NONE [employer] Is Beta [employer] a Home Med? Yes If Yes, Was This Ordered Today? Yes Antibiotics Is Patient on Antibiotics? No
[2016-10-25 07:54] VITALS: BP 136/62
--- NOTE | 2016-10-25 11:33 | Surgical Discharge Summary ---
Visit Information Visit Dates Admission Date: 10/21/16 Discharge Date: 10/25/16 History of Present Illness Chief Complaint: sbo Medical History Neurological: NONE EENT: NONE Cardiovascular: aortic aneurysm, AFIB Respiratory: LUNG BIOPSY Gastrointestinal: peptic ulcer disease, ILEUS H. 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 Home Who Do You Live With? Patient/Self Services at Home: Home Health Aide What is Your Primary Language? Panamanian Review of Systems: not assessed at d/c. see admit note Hospital Course Course Attending Physician: MADHAV RIVERS MD Primary Care Physician: DAVID HAWKINS MD. Hospital Course: admitted for sbo. medically managed with ngt, hydration. bowel function returned after 36 hours and diet initiated. Allergies: Coded Allergies: NO KNOWN ALLERGIES (03/02/14) Disposition Summary Disposition Principal Diagnosis: Intestinal obstruction Additional Diagnosis: none Discharge Disposition: home or self care Discharge Instructions General Discharge Information Code Status: Full Code Patient's Diet: regular low fiber Patient's Activity: ad shannon Follow-Up Instructions/Appts: pcp Medications at Discharge Discharge Medications: Continue taking these medications: Allopurinol (Allopurinol) 100 MG TABLET 1 Tablet ORAL TWICE DAILY Comments: Last Taken: 10/25/16 Time: 8:30 AM Omeprazole (Omeprazole) 20 MG CAPSULE.DR 1 Capsule ORAL Every Morning Comments: Last Taken: 10/25/16 Time: 6:30 AM Furosemide (Furosemide) 40 MG TABLET 1 Tablet ORAL TWICE DAILY Comments: Last Taken: 10/25/16 Time: 8:30 AM Multivitamin (Multiple Vitamins) 1 EACH TABLET 1 Tablet ORAL DAILY Comments: NOT GIVEN WHILE IN HOSPITAL Metoprolol Tartrate (Metoprolol Tartrate) 25 MG TABLET 1 Tablet ORAL TWICE DAILY Comments: Last Taken: 10/25/16 Time: 8:30 AM Duloxetine HCl (Duloxetine HCl) 20 MG CAPSULE.DR 1 Capsule ORAL Every Morning Comments: Last Taken: 10/25/16 Time: 8:30 AM Metolazone (Metolazone) 2.5 MG TABLET 1 Tablet ORAL MONDAY, MONDAY AND MONDAY Comments: Last Taken: 10/24/16 Time: 10:15 AM Potassium Chloride (Klor-Con M10) 10 MEQ TAB.ER.PRT 1 Tablet ORAL Every Morning Qty = 90 Comments: Last Taken: 10/25/16 Time: 8:30 AM Docusate Sodium (Colace) 100 MG CAPSULE 1 Capsule ORAL Every Morning Comments: Last Taken: 10/25/16 Time: 8:30 AM Amiodarone HCl (Amiodarone HCl) 200 MG TABLET 0.5 Tablet ORAL DAILY Qty = 45 Comments: Last Taken: 10/25/16 Time: 8:30 AM Polyethylene Glycol 3350 (Miralax) 17 GRAM POWD.PACK 1 Packet ORAL DAILY Instructions: dissolve in water Comments: Last Taken: 10/25/16 Time: 8:30 AM Prednisone (Prednisone) 5 MG TABLET 1 Tablet ORAL DAILY Qty = 90 Comments: Last Taken: 10/25/16 Time: 8:30 AM Copies To: SHRUTHI MIRZA,DAVID Mario
--- NOTE | 2016-10-27 17:28 | Admission Certification ---
Admission Certification Certification Statement - As attending physician, I certify that at the time of - admission, based on clinical presentation, severity of - symptoms, need for further diagnostic testing and - therapeutic interventions, and risk of adverse outcomes - without in-hospital treatment, in my clinical assessment, - this patient requires an acute hospital stay for a minimum - of two nights or longer. I have also considered psychsocial - factors such as support system, advanced age, financial - issues, cognitive issues, and failed out-patient treatments, - past re-admission history, safety of patient, and lack of - compliance as applicable. Specific rationale supporting this admission is: Intestinal obstruction with possible need for surgery or more than two days of medical management.
== END 2016-10-25 09:53 | disposition home health service (06) | DRG 394 ==
LOC: ERH 15:10 → 1NO 19:25 → ERHI 19:25 → ENRESERV 19:57 → ENTRNSPT 20:40 → EDTRNSPTTYP 20:46 → EDTRNSPT 20:46 → 1NO 20:55 → CMPTRNSPT 21:12 → 1NO 10-22 10:05 → ENPENDDIS 10-25 07:39 → 1NO 10-25 09:53
PROVIDERS: Emergency Medicine; Physician Assistant Surgical; ADMIT Surgery
DX: K43.0 Incisional hernia with obstruction, without gangrene (principal); I50.32 Chronic diastolic (congestive) heart failure; I48.2 Chronic atrial fibrillation; E86.0 Dehydration; M06.9 Rheumatoid arthritis, unspecified; E66.9 Obesity, unspecified; M10.9 Gout, unspecified; N18.9 Chronic kidney disease, unspecified; Z85.038 Personal history of other malignant neoplasm of large intestine; Z68.36 Body mass index [BMI] 36.0-36.9, adult; Z86.711 Personal history of pulmonary embolism; Z85.46 Personal history of malignant neoplasm of prostate
CPT/HCPCS: 1NSP; 36415; 74020; 82436; 93005; 93010; 96361; 96374; 96375; 96376; 99291; J1644; J2405; J2550; J7042; J7512; S5012